=== PATIENT | male | born 1995 | race Caucasian/White ===

== ENCOUNTER 2020-08-15 11:00 | Emergency (ER) | payer BC ==
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
--- NOTE | 2020-08-15 13:02 | CR ---
HISTORY: Axial load to the head. COMPARISON: CT 08/15/2020. FINDINGS: Lateral flexion extension views of the cervical spine. Alignment is within normal. No evidence for acute fracture or dislocation. The C7 and T1 vertebral bodies are not seen due to overlapping soft tissues. Dictated by Lisseth Washington MD @ Aug 15 2020 12:57PM Signed by Dr. Lisseth Washington @ Aug 15 2020 1:01PM
== END 2020-08-15 12:57 | disposition home or self-care (01) ==
LOC: MW.ED 11:00
DX: S00.03XA Contusion of scalp, initial encounter (principal); S10.93XA Contusion of unspecified part of neck, initial encounter; W20.8XXA Other cause of strike by thrown, projected or falling object, initial encounter
CPT/HCPCS: 70450; 70450-26; 72040; 72040-26; 72125; 72125-26; 99284; 99284-25

== ENCOUNTER 2022-04-12 08:47 | Emergency (ER) | payer BC ==
[2022-04-12] MEDS ORDERED: Ketorolac 60 MG/2 ML SDV IM ONE (10:31)
== END 2022-04-12 11:05 | disposition home or self-care (01) ==
LOC: MW.ED 08:47
DX: M25.561 Pain in right knee (principal); Z88.0 Allergy status to penicillin
CPT/HCPCS: 96372; 99283; J1885; 99282

== ENCOUNTER 2022-07-24 00:15 | Emergency (ER) | payer BC ==
[2022-07-24] MEDS ORDERED: Ketorolac 30 MG/ML SDV IVPUSH ONE (02:01)
[2022-07-24] MEDS ORDERED: Sodium Chloride 0.9% 1,000 ML IV ONE (02:01)
[2022-07-24] MEDS ORDERED: Sodium Chloride 0.9% 10 ML Syringe FLUSH PRN (02:01)
[2022-07-24] MEDS ORDERED: Sodium Chloride 0.9% 2.5 ML Syringe FLUSH PRN (02:01)
[2022-07-24 02:46] LABS: BLOOD UREA NITROGEN,BUN 10 mg/dL (7.0-18.0); CARBON DIOXIDE,CO2 28.9 mmol/L (21.0-32.0); CHLORIDE,CL 106 mmol/L (98-107); GLUCOSE RANDOM 149 mg/dL (74-106); SODIUM,NA 143 mmol/L (136-148)
[2022-07-24 02:47] LABS: ESTIMATED GFR 126 mL/min (>60)
[2022-07-24 03:01] LABS: CORONAVIRUS COVID-19 NAA NEGATIVE (NEGATIVE); INFLUENZA A NAA NEGATIVE (NEGATIVE); INFLUENZA B NAA NEGATIVE (NEGATIVE); RESPIRATORY SYNCYTIAL VIR NAA NEGATIVE (NEGATIVE)
[2022-07-24] MEDS ORDERED: Clindamycin HCl 150 MG Cap PO SCH (05:15)
== END 2022-07-24 05:25 | disposition home or self-care (01) ==
LOC: MW.ED 00:15
DX: R68.84 Jaw pain (principal); Z88.0 Allergy status to penicillin; Z20.822 Contact with and (suspected) exposure to COVID-19; Z79.899 Other long term (current) drug therapy
CPT/HCPCS: 0241U; 36415; 70491; 80053; 85025; 85652; 86140; 96361; 96374; 99284; A9270; J1885; J3490; J7030